=== PATIENT | female | born 1995 | race Caucasian/White ===

== ENCOUNTER 2016-09-30 11:41 | Emergency (ER) | payer OTHER | END 2016-09-30 13:13 | disposition home or self-care (01) | LOC: FER 11:41 | DX: J10.1 Influenza due to other identified influenza virus with other respiratory manifestations (principal); J32.1 Chronic frontal sinusitis; F17.210 Nicotine dependence, cigarettes, uncomplicated; Z88.0 Allergy status to penicillin; Z88.1 Allergy status to other antibiotic agents | CPT/HCPCS: 36415; 71020; 85379; 87804; 87899; 94640; 94664 ==

== ENCOUNTER 2016-10-03 21:31 | Emergency (ER) | payer OTHER | END 2016-10-03 22:31 | disposition home or self-care (01) | LOC: FER 21:31 | DX: J11.1 Influenza due to unidentified influenza virus with other respiratory manifestations (principal); Z87.891 Personal history of nicotine dependence; Z79.51 Long term (current) use of inhaled steroids | CPT/HCPCS: 71020; 99284 ==